=== PATIENT | female | born 1975 | race Caucasian/White ===

== ENCOUNTER 2022-03-24 13:37 | Observation (INO) | payer OTHER ==
[~2022-03-24] VITALS: Ht 165.1 cm; Wt 119.5 kg
--- NOTE | ~2022-03-24 | OR ---
[facility] [address], [place] [address] Draft DATE OF OPERATION: 03/24/2022 SURGEON: Kaylen Greco MD PREOPERATIVE DIAGNOSIS: Right great labia majora abscess. POSTOPERATIVE DIAGNOSIS: Right great labia majora abscess. PROCEDURE: 1. Incision and drainage and debridement of right labial abscess. 2. Placement of two yellow vessel loop drain. ANESTHESIA: Saddle block with IV sedation, Raul Cervantes CRNA INDICATIONS: This 47-year-old morbidly obese white woman has diabetes mellitus which is poorly controlled. She was noted to have soreness and increasing pain in the right labia majora over the preceding week. She was seen by ARY Griffiths, today confirming high probability of abscess. She seen in the office and admitted directly to the hospital for further evaluation and care to include drainage. Her preoperative blood sugar was 215. She understands the risks of bleeding, infection, need for other indicated procedures other than drainage and debridement and wished to proceed. FINDINGS: Copious purulent fluid was noted from the right labia majora. It extended cephalad to the mons pubis and inferiorly to the posterior fourchette. It did not represent an anal rectal problem. Complete drainage has been accomplished. Two vessel loops were used for ongoing drainage and postop care. DESCRIPTION OF PROCEDURE: The patient was brought to the operating room after undergoing saddle block in the preop anesthetic area. She was placed in the supine position, given intravenous sedation. Legs were placed in stirrups with all due care including padding of pressure points. The perineum was prepared with a Betadine based solution. The area of fluctuance in the mid right labia majora was identified and incised with a 15 blade, plan for egress of copious amount of purulent material. This was Gram stained and cultured. Hemostat was used to interrogate the space inferiorly and extending more posteriorly than expected PATIENT NAME: OLIVIER MCGOWAN OPERATIVE REPORT DATE OF : 71 REPORT #: [id number] PHYSICIAN: KAYLEN GRECO MD PCP: CELE VASQUEZ REPORT IS CONFIDENTIAL AND NOT TO BE RELEASED WITHOUT AUTHORIZATION [facility] [address], [place] [address] Draft and superiorly as well. Some discomfort was noted in the superior probing related to the level of the block no doubt. Once the purulent material was freed, suction irrigation was undertaken after placement of two yellow vessel loops through the incision sites. Three incision sites were noted were required. Once irrigation fluid was clear, PAC in the superior cavity was undertaken. Subsequently the inferior cavity with some iodoform half-inch gauze. A peripad was placed. She was ultimately transferred to the recovery room in good condition. BLOOD LOSS: 20 mL or less. Sponge, needle, and instrument counts reported as correct x3. MD ALDA Chan/SEAN /[id number] cc: ARY Miller Copies: CELE VASQUEZ ~ PATIENT NAME: OLIVIER MCGOWAN SAMAN OPERATIVE REPORT DATE OF : 71 REPORT #: [id number] PHYSICIAN: KAYLEN GRECO MD PCP: CELE VASQUEZ REPORT IS CONFIDENTIAL AND NOT TO BE RELEASED WITHOUT AUTHORIZATION
--- NOTE | ~2022-03-24 | HP ---
[facility] [address], [place] [address] Draft ADMISSION DATE: 03/24/2022 REASON FOR ADMISSION: Right labial abscess, poorly-controlled diabetes mellitus. HISTORY: This 47-year-old obese woman (261 pounds), presented after a week of increasing pain in the right labial area to [facility] Calle, her primary provider. She is recognized as having a labial abscess on the right side. She was seen in my office by me at approximately 01:00 p.m. confirming the findings of erythema and tenderness and soft tissue mass consistent with right labial abscess, which is possibly extensive. The patient has underlying diabetes mellitus, for which she takes metformin. She does not have good blood sugar control generally speaking. She admits that she has not checked her own blood sugar in quite some time. She has had no spontaneous drainage of the area in question, which she thinks may have been a fever, though her temperature currently is 97.0. She has had no chills. PAST MEDICAL HISTORY: Includes left breast lump excision in 1998 for benign disease. She has also had knee surgery in 2017. She does not smoke. Drinks alcohol rarely. She is considered to have allergy to latex. She has not had periods in quite some time. She is considered postmenopausal. The patient is and has four children, the youngest which is 10 years old. She lives in [place]. Her ( ) works for [employer]. REVIEW OF SYSTEMS: She denies any chest pain or shortness of breath. She last ate breakfast (hash browns) at approximately eight this morning. She denies any hematemesis or hemoptysis. She has had no chills. PHYSICAL EXAMINATION: GENERAL: A morbidly obese white woman, who does not look systemically toxic at this time. VITAL SIGNS: Temperature is 97.0, pulse is 84, blood pressure 97/77. Weight is 261 pounds. NECK: Shows no thyromegaly or cervical adenopathy. Mucous membranes reasonably moist. CHEST: Clear, without wheeze or rhonchi. HEART: Regular without murmur. PATIENT NAME: OLIVIER MCGOWAN HISTORY AND PHYSICAL DATE OF : 71 REPORT #: [id number] PHYSICIAN: KAYLEN GRECO MD PCP: CELE CALLE REPORT IS CONFIDENTIAL AND NOT TO BE RELEASED WITHOUT AUTHORIZATION [facility] [address], [place] [address] Draft ABDOMEN: Obese and soft. : Examination of the perineum shows an abscess in the right mid labial area. Erythema is noted in the fluctuant mass. There is no evidence of necessitation. She has no evidence of cellulitic change or crepitus. EXTREMITIES: Show no clubbing, cyanosis, or edema. MEDICATIONS: Include: 1. Metformin 500 mg two tablets p.o. daily. 2. Citalopram 20 mg p.o. daily. 3. Lovastatin 20 mg p.o. daily. 4. q.8 hours as needed. 5. Fluconazole 150 mg tablet as needed. 6. Clotrimazole cream as needed. ASSESSMENT: The patient has right labial abscess, for which drainage is needed. Consideration was made for drainage in the office and given the extent of the possibility of this abscess, its length of time in development (greater than a week), her underlying diabetes, and morbid obesity, she will likely be better served and bladder drained in an operative setting rather than the office setting. I discussed the risks of bleeding, infection, and so forth with her. She was directly admitted to the hospital to have initiation of antibiotics, IV fluids, lab studies and so. The operative management will probably include incision with drainage cultures, a counter incision in the yellow vessel loop drain. MD ALDA Chan/KELSIL /[id number] cc: ARY Miller PATIENT NAME: OLIVIER MCGOWAN HISTORY AND PHYSICAL DATE OF : 71 REPORT #: [id number] PHYSICIAN: KAYLEN GRECO MD PCP: CELE CALLE REPORT IS CONFIDENTIAL AND NOT TO BE RELEASED WITHOUT AUTHORIZATION [facility] [address] [place], [place] [address], [place] [address] Draft Copies: CELE CALLE ~ PATIENT NAME: OLIVIER MCGOWAN SAMAN HISTORY AND PHYSICAL DATE OF : 71 REPORT #: [id number] PHYSICIAN: KAYLEN GRECO MD PCP: CELE CALLE REPORT IS CONFIDENTIAL AND NOT TO BE RELEASED WITHOUT AUTHORIZATION
[~2022-03-24 13:37] MED LIST: CALCIUM 600 +1 EAC1 PO; CRUTCH1 EACH MISC; METFORMIN HCL500 MG PO; MOBIC7.5 MG PO; NAPROXEN500 MG PO; NORCO 10-325 T1 EACH PO; PROBIOTIC1 EAC1 PO; VITAMIN D5000 UNIT PO
--- NOTE | 2022-03-24 13:55 | NUR ---
Pt arrives to med surg unit, ambulatory. Hx and assessment complete. IV started, labs drawn, IVF infusing. Written orders from Dr Copeland verified with second RN and pharmacy and entered.
[2022-03-24] MEDS ORDERED: LOVASTATIN20 MG PO (14:01)
[2022-03-24] MEDS ORDERED: LEXAPRO20 MG PO (14:01)
[2022-03-24] MEDS ORDERED: FLUCONAZOLE150 MG PO (14:02)
[2022-03-24] MEDS ORDERED: VALACYCLOVIR1000 MG PO (14:02)
[2022-03-24] MEDS ORDERED: ALEVAZOL56.7 GM TOP (14:03)
--- NOTE | 2022-03-24 14:55 | NUR ---
Pt reports pain 7/10 to R labial area, IV toradol administered. Pt resting in bed. Denies questions or needs at this time.
--- NOTE | 2022-03-24 15:10 | NUR ---
IV ABX infusing. Pt updated on POC, agreeable. Pt denies pain or needs at this time.
--- NOTE | 2022-03-24 15:50 | NUR ---
IV Ancef infusing per order. Eli SCREEN HANDLER assists with pre op wipe down and jewelry removal. Pt prepared for OR. No needs at this time, pt denies further need for PRN pain medication.
--- NOTE | 2022-03-24 17:23 | NUR ---
Pt medicated with 2mg morphine for 8/10 pain. Pt prepped for OR and declines other needs. Call light in reach.
--- NOTE | 2022-03-24 19:03 | NUR ---
03/24/221902 Maura Gonzales 185: PT ARRIVES TO PACU WITH EYES CLOSED, RESP EVEN AND UNLABORED. PT SPONTANEOUSLY OPENS EYES AND STATES PAIN 9-10 WHEN ASKED. PT DENIES NAUSEA AND IS ABLE TO MOVE BLE. LARA GIBSON AT BEDSIDE. 1899: IV PAIN MEDICATION ADMINISTERED BY VULCANIZER OPERATOR.
--- NOTE | 2022-03-24 19:10 | NUR ---
REPORT FROM NADEEM AHUMADA, PT IN PACU -
--- NOTE | 2022-03-24 19:31 | NUR ---
PT TO ROOM 107 POST OP VIA BED, REPORT FROM RN, IV LR AT 125 LEFT ARM. PT DRSG TO LABIA SMALL AMT OF BLOOD NOTED ON DINAH PAD. PT HAS LOOP DRAIN AND LOWER INSC. WITH PACKING OF SMALL WICK. PT HOWEVER AMB TO BATHROOM VOID 300 ML OF URINE AND WICK FELL OUT. PT BACK TO BED STEADY ON FEET. VITALS WNL - ORIENTED PT AND TO ROOM AND RN, WHITE BOARD UPDATED. BS CHECKED 168. CALL LIGHT IN REACH AND PLAN OF CARE DISCUSSED.
--- NOTE | 2022-03-24 21:32 | NUR ---
WAKES SLIGHTLY FOR VS, DENIES NEEDS. IV INFUSING PER ORDER.
--- NOTE | 2022-03-24 22:30 | NUR ---
PT WAS PROVIDED A LATE NIGHT MEAL BOX, TOLLERATED WELL, NO NAUSEA/VOMITING. DENIES NEEDS
--- NOTE | 2022-03-25 01:46 | NUR ---
pt amb to br to void qs, new amy pad given for sm amt of red drainage from wound. new chux pad on bed, iv fusing lr at 125, pt rates pain with movement 02/16 - iv toradol given. pt in bed, call light in reach.
--- NOTE | 2022-03-25 07:11 | NUR ---
this rn verified with pharmacy noemí that correct dose of ancef was given last night, scanned correctly and loaded in refridge for this pt. no 3 gm ancef found for this 6 am dose - noemí is finding one and sending down now to give at 7 am. pt iv derek is fusing now.
--- NOTE | 2022-03-25 07:21 | NUR ---
DR BACA HERE WITH PT - PLAN FOR DC HOME, NO RESTRICTIONS AMB TOLLERATED.
--- NOTE | 2022-03-25 07:30 | NUR ---
THIS RN DISCUSSED PO PAIN MEDS WITH DR GRECO AND UPDATED - NEW ORDER FOR SITZ BATH AND PLAN TO GO HOME TODAY AFTER EDUCATION ON TASK. REPORT TO ARI AHUMADA.
--- NOTE | 2022-03-25 08:10 | NUR ---
Report received, care resumed. Pt sitting up in bed awake and visiting with family. IV LR infusing at 125 ml/hr. Pt asking when pain meds are due, pain at 4/10, rising from earlier this a.m. Plan to d/c to home after PO meds, sitz bath. Dr. Pascal already rounded, awaiting d/c orders.
--- NOTE | 2022-03-25 09:39 | NUR ---
ASSESSMENT DONE, WARM WATER SITZ BATH PERFORMED AND EDUCATION/SUPPLIES PROVIDED FOR AT HOME. PT EXPRESSED UDNERTSTANDING, STATES THAT IT FEELS GOOD. INCISIONS ON RIGHT LABIA NOTED TO BE DRAINING SMALL AMOUNT OF RED SEROSANGUINOUS FLUID. [address], WICKING IN LOWER DRAIN ONLY. PAIN 3/10 IN RIGHT LABIA, ABD TENDER IN RLQ. O2 95% ON RA, IV LR INFUSING AT 125 ML/HR. IV PATENT BUT POSITIONAL. NO FURTHER NEEDS AT THIS TIME, CALL LIGHT IN REACH.
[2022-03-25] MEDS ORDERED: METRONIDAZ500 MG/100 IV (11:19)
[2022-03-25] MEDS ORDERED: OXYCODON-ACETA1 EAC2 PO (11:19)
[2022-03-25] MEDS ORDERED: TYLENOL EXTRA500 MG PO (11:20)
[2022-03-25] MEDS ORDERED: MOTRIN IB200 MG PO (11:20)
[2022-03-25] MEDS ORDERED: AUGMENTIN 500-1 EACH PO (11:24)
[2022-03-25] MEDS ORDERED: METRONIDAZOLE500 MG PO (11:42)
--- NOTE | 2022-03-25 11:55 | NUR ---
MED REC COMPLETE
--- NOTE | 2022-03-25 12:11 | NUR ---
PT DISCHARGED TO HOME. VERBAL AND WRITTEN EDUCATION PROVIDED, PT EXPRESSED UNDERSTANDING. VSS, PAIN 3/10 IN LABIA. po PAIN MEDS GIVEN PRIOR TO D/C. FLU SHOT ALSO PROVIDED, PT TOLERATED WELL. PT LEFT FLOOR WITH DAUGHTER AND EVENT SERVICES MANAGER VIA WHEELCHAIR WITH ALL PERSONAL BELONINGS, SITZ BATH SUPPLIES. WAITING AT CAR.
== END 2022-03-25 12:10 | disposition home or self-care (01) ==
LOC: MS 13:37
PROVIDERS: ADMIT Surgery; ATTEND Surgery
PROC: 0U9M0ZZ Drainage of Vulva, Open Approach (ICD-10-PCS; principal; 2022-03-24 18:00)
DX: N76.4 Abscess of vulva (principal); E66.01 Morbid (severe) obesity due to excess calories; E11.65 Type 2 diabetes mellitus with hyperglycemia; Z91.040 Latex allergy status; Z79.84 Long term (current) use of oral hypoglycemic drugs
CPT/HCPCS: 36415; 80048; 80053; 85025; J0690; J1815; J1885; J2250; J2270; J2704; J3010; J7121; U0003

== ENCOUNTER 2023-05-12 08:33 | Emergency (ER) | payer OTHER ==
[~2023-05-12] VITALS: Ht 162.6 cm; Wt 122.2 kg
[~2023-05-12 08:33] MED LIST changes: +ALEVAZOL56.7 GM TOP; +AUGMENTIN 500-1 EACH PO; +FLUCONAZOLE150 MG PO; +LEXAPRO20 MG PO; +LOVASTATIN20 MG PO; +METRONIDAZ500 MG/100 IV; +METRONIDAZOLE500 MG PO; +MOTRIN IB200 MG PO; +OXYCODON-ACETA1 EAC2 PO; +TYLENOL EXTRA500 MG PO; +VALACYCLOVIR1000 MG PO
[2023-05-12] MEDS ORDERED: ONDANSETRON ODT8 MG (08:49)
[2023-05-12] MEDS ORDERED: GLIPIZIDE ER10 MG (08:49)
[2023-05-12 13:09] VITALS: BP 145/87
== END 2023-05-12 13:09 | disposition home or self-care (01) ==
LOC: ED 08:33
DX: S93.602A Unspecified sprain of left foot, initial encounter (principal); X58.XXXA Exposure to other specified factors, initial encounter; R73.03 Prediabetes; Z91.040 Latex allergy status; Z79.899 Other long term (current) drug therapy; Z79.84 Long term (current) use of oral hypoglycemic drugs
CPT/HCPCS: 73630; 99283-25

== ENCOUNTER 2023-12-13 11:33 | Day surgery (SDC) | payer OTHER ==
[~2023-12-13] VITALS: Ht 162.6 cm; Wt 118.0 kg
[~2023-12-13 11:33] MED LIST changes: +GLIPIZIDE ER10 MG; +IBLOOD GLUCOSE TEST STRIP 1 EA TEST VI PRN; +LACTATED RINGER'S 1,000 ML IV SCH; +LIDOCAINE HCL 1% 5 ML SDV INJ ONE; +LIDOCAINE HCL 4% 50 ML BTL TOP SCH; +MIDAZOLAM HCL 5 MG/5 ML VIAL IV PRN; +ONDANSETRON ODT8 MG; +fentaNYL citrate 100 MCG/2 ML VIAL IV PRN
[2023-12-13 11:55] VITALS: BP 122/79
--- NOTE | 2023-12-13 15:14 | NUR ---
LE 1400-PT UPDATED ON SURGICAL WAIT TIME. PT VERBALIZED UNDERSTANDING. NO OTHER NEEDS AT THIS TIME. CALL LIGHT WITHIN REACH.
--- NOTE | 2023-12-13 15:19 | NUR ---
LE 1500-PT UP TO RESTROOM. LE 1504-PT BACK TO ROOM 9. CALL LIGHT WITHIN REACH.
[2023-12-13] MEDS ORDERED: fentaNYL citrate 100 MCG/2 ML VIAL ONE (15:50)
[2023-12-13] MEDS ORDERED: MIDAZOLAM HCL 5 MG/5 ML VIAL ONE (15:50)
[2023-12-13 17:48] VITALS: BP 114/74
--- NOTE | 2023-12-13 17:58 | NUR ---
12/13/23 1758 Haley Gan 1657 PT ARRIVED TO PACU ON RA, PT AWAKES EASILY AND DENIES CONCERNS. 1702 3L NC PLACED DUE TO O2 SAT 90%, PT ASLEEP. O2 INCREASED TO MID 90S. 1706 MD AT BEDSIDE TALKING TO PT. 1710 O2 REMOVED, PT ROLLED TO BACK AND ENCOURAGED TO PASS GAS. PT DENIES CONCERNS. 1725 PT SIPPING WATER WITH NO CONCERNS AND PT DRESSED HERSELF. CALLED FOR CAR. 1740 PT DC WITH PAPERWORK AND INSTRUCTIONS GIVEN. GALLBLADDER INFORMATION GIVEN AND PT VERBALIZED UNDERSTANDING OF SURGERY PLAN.
--- NOTE | 2023-12-14 13:31 | OR ---
[facility] [address] [place], [place] [address] Signed DATE OF OPERATION: 12/13/2023 SURGEON: Kaylen Greco MD PREOPERATIVE DIAGNOSES: 1. Upper abdominal symptoms highly probable of biliary colic. 2. Colon screening. POSTOPERATIVE DIAGNOSES: 1. Small hiatal hernia without other abnormality. 2. Minimal chronic distal esophagitis. 3. Normal colon. PROCEDURES: 1. Esophagogastroduodenoscopy with biopsy. 2. Total colonoscopy to cecum. ANESTHESIA: Intravenous sedation; fentanyl 150 mcg, Versed 8 mg. INDICATION: This 48-year-old white woman is a patient of ARY Miller. She has had symptoms highly suggestive of biliary colic for the past two years. Evaluation in the past showed a gallbladder ultrasound which was normal. She underwent a CCK-HIDA test on October 27, 2023 showing ejection fraction of 72% but marked reproduction of symptoms of biliary colic. I have advocated cholecystectomy to be considered. She is still somewhat reluctant to that. She does have postprandial pain in the right subcostal area and the posterior thoracic area and does have family history of cholecystectomy in grandmother and sister and mother. She is due for screening colonoscopy based on her age, though she has no symptoms in that regard. Colonoscopy is planned for that. Since her HIDA scan was somewhat ambiguous as regards to ejection fraction, I have offered upper endoscopy concurrent to her colonoscopy to assure there is no peptic disease of the stomach or esophagus. She agrees to that as well. The risk of bleeding, infection, and perforation related to upper endoscopy and colonoscopy have been reviewed with her. She understands and wished to proceed. FINDINGS: Upper endoscopy did show a poor flap valve, but no sign of large hiatal hernia. The Electronically Signed By: AKYLEN GRECO MD 12/14/23 1331 PATIENT NAME: OLIVIER MCGOWAN OPERATIVE REPORT DATE OF : 71 REPORT #: [id number] PHYSICIAN: KAYLEN GRECO MD PCP: CELE VASQUEZ REPORT IS CONFIDENTIAL AND NOT TO BE RELEASED WITHOUT AUTHORIZATION [facility] [address] [place], [place] [address] Signed esophagus had mild chronic distal esophagitis. No sign of Garcia's epithelium. The stomach was normal. The patient had a fair amount of congestion secretions somewhat intolerant as regards to O2 saturations with upper endoscopy. The procedure did not include duodenal evaluation per se though the pylorus itself appeared normal. Additionally, CLOtest was not performed. On colonoscopy, the prep was quite good. Complete colonoscopy was undertaken of the cecum which was normal. DESCRIPTION OF PROCEDURE: The patient was brought to the endoscopy suite and placed in the lateral decubitus position, given topical lidocaine hypopharyngeal anesthesia. She is given intravenous sedation to the point of slurred speech and nystagmus. Full cardiopulmonary monitoring was maintained. The Olympus video upper endoscope was passed in the hypopharynx. The vocal cords were briefly evaluated and found to be normal. Upon passage of the scope into the esophagus, the patient did have a fair amount of secretions requiring suction and so forth. The scope was passed in the stomach which was insufflated with air. Rugal folds were normal. Antrum was normal. Pylorus was normal. She was having some issues with secretions and therefore additional sedation was withheld, but suctioning undertaken. As the stomach appeared normal and the pylorus was somewhat in spasm further passage through the area was deemed unwise. Retroflexed view was undertaken showing a marginal flap valve. The scope was withdrawn to the distal esophagus. By this point, her secretions and so forth were better control. Biopsies were obtained of the distal esophagus. It appeared possibly mildly inflamed but certainly not severe and with no evidence of Garcia's epithelium. Further withdrawal of scope was undertaken with no other findings of concern. She did promptly respond to withdrawal of the scope. She was given additional sedation ultimately and a digital rectal examination performed which was normal. Olympus video colonoscope was passed in the rectum and manipulated throughout the colon ultimately intubating the cecum itself. The ileocecal valve and appendiceal orifice were normal. The scope was then withdrawn and examination throughout showed no sign of abnormality, specifically no [id number], diverticular formation, colitis, or cancer. Retroflexed view was normal as well. The scope was removed and the patient was taken to the recovery room in good condition. CONCLUDING DIAGNOSES: 1. No obvious lesions on upper endoscopy, though duodenum not fully evaluated. Minimal hiatal hernia or poor flap valve with no sign of active esophagitis, ulceration or Garcia's epithelium. 2. Normal colon. Electronically Signed By: KAYLEN GRECO MD 12/14/23 1331 PATIENT NAME: OLIVIER MCGOWAN [facility] OPERATIVE REPORT DATE OF : 71 REPORT #: [id number] PHYSICIAN: KAYLEN GRECO MD PCP: CELE VASQUEZ REPORT IS CONFIDENTIAL AND NOT TO BE RELEASED WITHOUT AUTHORIZATION [address] [address] Signed PLAN: Repeat colonoscopy would be recommended in 10 years given her risk profile, certainly sooner if needed. She can call the office to make arrangements for cholecystectomy in the future as she permits. MD ALDA Chan/MODL /[id number] cc: ARY Miller Copies: CELE VASQUEZ ~ Electronically Signed By: KAYLEN GRECO MD 12/14/23 1331 PATIENT NAME: OLIVIER MCGOWAN SAMAN OPERATIVE REPORT DATE OF : 71 REPORT #: [id number] PHYSICIAN: KAYLEN GRECO MD PCP: CELE VASQUEZ REPORT IS CONFIDENTIAL AND NOT TO BE RELEASED WITHOUT AUTHORIZATION
== END 2023-12-13 17:40 | disposition home or self-care (01) ==
LOC: DS 11:33 → OPS 11:33 → DS 13:00 → OPS 13:00
PROVIDERS: ATTEND Surgery
PROC: 0DB38ZX Excision of Lower Esophagus, Via Natural or Artificial Opening Endoscopic, Diagnostic (ICD-10-PCS; principal; 2023-12-13 13:00)
PROC: 0DJD8ZZ Inspection of Lower Intestinal Tract, Via Natural or Artificial Opening Endoscopic (ICD-10-PCS; 2023-12-13 13:00)
DX: Z12.11 Encounter for screening for malignant neoplasm of colon (principal); K44.9 Diaphragmatic hernia without obstruction or gangrene; K20.90 Esophagitis, unspecified without bleeding; E66.01 Morbid (severe) obesity due to excess calories; E11.65 Type 2 diabetes mellitus with hyperglycemia; Z68.41 Body mass index [BMI] 40.0-44.9, adult; Z79.84 Long term (current) use of oral hypoglycemic drugs; Z79.899 Other long term (current) drug therapy; Z91.040 Latex allergy status
CPT/HCPCS: 84703; 99153; G0500; J2250; J3010; J7121

== ENCOUNTER 2023-12-27 05:57 | Day surgery (SDC) | payer OTHER ==
[2023-12-22 13:09] VITALS: BP 125/85
[~2023-12-27] VITALS: Ht 162.6 cm; Wt 120.5 kg
[~2023-12-27 05:57] MED LIST changes: -IBLOOD GLUCOSE TEST STRIP 1 EA TEST VI PRN; -LIDOCAINE HCL 1% 5 ML SDV INJ ONE; -LIDOCAINE HCL 4% 50 ML BTL TOP SCH; -MIDAZOLAM HCL 5 MG/5 ML VIAL IV PRN; -fentaNYL citrate 100 MCG/2 ML VIAL IV PRN
[2023-12-27 06:22] VITALS: BP 151/80
[2023-12-27] MEDS ORDERED: iopamidoL 30 ML VIAL ONE (06:48)
[2023-12-27] MEDS ORDERED: LIDOCAINE HCL 1% 5 ML SDV INJ ONE (07:00)
[2023-12-27] MEDS ORDERED: HEParin SOD (PORCINE) 5,000 UNIT/0.5 ML SYR SUB-Q SCH (07:00)
[2023-12-27] MEDS ORDERED: IBLOOD GLUCOSE TEST STRIP 1 EA TEST VI PRN ×2 (07:00→09:15)
[2023-12-27] MEDS ORDERED: CEFAZOLIN SODIUM 2 GM/20 ML SYR IV SCH (07:00)
[2023-12-27] MEDS ORDERED: dexmedeTOMIDine HCl 200 MCG/2 ML VIAL ONE (07:24)
[2023-12-27] MEDS ORDERED: MAGNESIUM SULFATE 1 GM/2 ML VIAL ONE (07:24)
[2023-12-27] MEDS ORDERED: ROCURONIUM BROMIDE 50 MG/5 ML SYR ONE (07:24)
[2023-12-27] MEDS ORDERED: fentaNYL citrate 100 MCG/2 ML VIAL ONE (07:24)
[2023-12-27] MEDS ORDERED: SUCCINYLCHOLINE IN 0.9% NACL 200 MG/10 ML SYRINGE ONE (07:24)
[2023-12-27] MEDS ORDERED: LIDOCAINE HCL 2% 5 ML SDV ONE (07:24)
[2023-12-27] MEDS ORDERED: SUGAMMADEX SODIUM 200 MG/2 ML ML ONE (07:24)
[2023-12-27] MEDS ORDERED: KETOROLAC TROMETHAMINE 30 MG/ML VIAL ONE (07:24)
[2023-12-27] MEDS ORDERED: propofoL 200 MG/20 ML VIAL ONE (07:24)
[2023-12-27] MEDS ORDERED: KETAMINE in NS 50 MG/5 ML SYR ONE (07:24)
[2023-12-27] MEDS ORDERED: SCOPOLAMINE 1 MG/3 DAYS PATCH 1 EACH TDSY ONE (07:24)
[2023-12-27] MEDS ORDERED: ACETAMINOPHEN 1,000 MG/100 ML VIAL ONE (07:24)
[2023-12-27] MEDS ORDERED: MIDAZOLAM HCL 2 MG/2 ML VIAL ONE (07:26)
[2023-12-27] MEDS ORDERED: LACTATED RINGER'S 1,000 ML IV ONE (08:37)
[2023-12-27] MEDS ORDERED: ACETAMINOPHEN500 MG PO (09:08)
[2023-12-27] MEDS ORDERED: OXYCODON-ACETA1 EAC2 PO (09:08)
[2023-12-27] MEDS ORDERED: IBUPROFEN600 MG PO (09:08)
--- NOTE | 2023-12-27 09:11 | NUR ---
12/27/23 0911 Jaye Flores 0856- PT ARRIVES TO PACU NONAROUSABLE TO STIMULI WITH AN OPA IN PLACE. RESP EVEN AND UNLABORED. OXYGEN SAT MID TO HIGH 90'S ON 8L VIA MASK. 0858- PT STARTING TO AROUSE TO STIMULI. INSTRUCTED PT TO OPEN HER MOUTH TO REMOVE THE OPA. PT IS UNABLE TO FOLLOW COMMANDS AT THIS TIME. OXYGEN MASK REPLACED. OPA LEFT IN PLACE. 0859- PT REACHES UP AND PULLS OUT HER OPA. OXYGEN MASK REPLACED AT 8L. RESP EVEN AND UNLABORED. 0911- PT WILL AROUSE AND OPEN HER EYES. PT DOES NOT FOLLOW COMMANDS OR ANSWER QUESTIONS AT THIS TIME. PT FALLS BACK TO SLEEP EASILY.
[2023-12-27] MEDS ORDERED: IBUPROFEN 600 MG TAB PO PRN (09:15)
[2023-12-27] MEDS ORDERED: NALOXONE HCL 0.4 MG SYR IV PRN ×2 (09:15)
[2023-12-27] MEDS ORDERED: PROCHLORPERAZINE EDISYLATE 10 MG/2 ML VIAL IV PRN (09:15)
[2023-12-27] MEDS ORDERED: HYDROmorphone HCL 1 MG/ML SYR IV PRN (09:15)
[2023-12-27] MEDS ORDERED: LACTATED RINGER'S 1,000 ML IV SCH (09:15)
[2023-12-27] MEDS ORDERED: METOCLOPRAMIDE HCL 10 MG/2 ML SDV IV PRN (09:15)
[2023-12-27] MEDS ORDERED: ondansetron HCL 4 MG/2 ML VIAL IV PRN ×2 (09:15)
[2023-12-27] MEDS ORDERED: fentaNYL citrate 50 MCG/ML SDV IV PRN (09:15)
[2023-12-27] MEDS ORDERED: ACETAMINOPHEN 500 MG TAB PO PRN (09:15)
[2023-12-27] MEDS ORDERED: OXYCODONE/APAP 7.5/325 TAB PO PRN (09:15)
[2023-12-27] MEDS ORDERED: droPERidol 5 MG/2 ML VIAL IV PRN (09:15)
[2023-12-27] MEDS ORDERED: fentaNYL citrate 50 MCG/ML SDV ONE (09:26)
[2023-12-27 10:05] VITALS: BP 111/65
--- NOTE | 2023-12-27 10:15 | NUR ---
1005-PT BACK TO ROOM FROM PACU ON RA. RECEIVED REPORT FROM JUJU AHUMADA. PT IS DROWSY. RESP EVEN AND UNLABORED. RATES PAIN 7/10. STATES "LITTLE BIT OF NAUSEA" DECLINES NAUSEA MEDICATION AT THIS TIME. PT HAS PILLOW TO SPLINT WITH. FAMILY IN ROOM. NO OTHER NEEDS AT THIS TIME. CALL LIGHT WITHIN REACH. 1009-PAIN MEDICATION GIVEN PER EMAR.
--- NOTE | 2023-12-27 10:55 | NUR ---
1044-PT STATES PAIN IS STILL 12/06. 2ND PAIN MEDICATION GIVEN PER EMAR. PT USING PILLOW TO SPLINT WITH. NO OTHER NEEDS AT THIS TIME. FAMILY IN ROOM. CALL LIGHT WITHIN REACH.
[2023-12-27 11:20] VITALS: BP 121/77
--- NOTE | 2023-12-27 11:20 | NUR ---
LE 1120-PT LAYING IN BED WITH EYES CLOSED. AWAKES EASILY WITH VERBAL STIMULI. RATES PAIN 5/10. DENIES NAUSEA. PT HAS WATER AT BEDSIDE. FAMILY IN ROOM. NO OTHER NEEDS AT THIS TIME. CALL LIGHT WITHIN REACH.
[2023-12-27 12:24] VITALS: BP 1008/69
--- NOTE | 2023-12-27 12:28 | NUR ---
1220-PATIENT DENIES NAUSEA REPORTS "PAIN TOLERABLE AT 4" 02 SAT WAS 89-90% ON RA ENCOURAGED DEEP BREATHING AND O2 SAT INCREASED TO 99% ON RA RR EVEN. AND FAMILY AT BEDSIDE. CALL LIGHT WITHIN REACH.
[2023-12-27 13:20] VITALS: BP 105/56
--- NOTE | 2023-12-27 13:20 | NUR ---
LE 1320-PT LAYING IN BED WITH EYES CLOSED. OPENS EYES AND ANSWERES QUESTIONS WITH VERBAL SIMULI. RESP EVEN AND UNLABORED. VSS. RATES PAIN 2/10. DENIES NAUSEA. DRESSINGS WITH SMALL AMOUNT OF RED DRAINAGE. PT READY TO GO HOME. FAMILY WILL HELP PT GET DRESSED. LE 1327-PT AMUBLUATES TO RESTROOM. GAIT STEADY AND TOLERATED WELL. PT VOIDS. LE 1331-PT BACK TO ROOM AND SITTING AT BEDSIDE.
--- NOTE | 2023-12-27 13:40 | NUR ---
DISCHARGE INSTRUCTIONS DISCUSSED WITH PT AND PT'S . ALL QUESTIONS ANSWERED. PT REPORTS ABD PAIN A 2/10, DENIES ANY NAUSEA. PT STATES SHE FEELS READY TO GO HOME. PT ABLE TO AMBULATE TO THE WHEELCHAIR AND IS TAKEN TO THE FRONT OF THE HOSPITAL. PT INTO THE PASSENGER SIDE OF HER VEHICLE. PT THANKFUL FOR HER CARE.
--- NOTE | 2023-12-29 11:49 | OR ---
[facility] [address], [place] [address] Signed DATE OF OPERATION: 12/27/2023 SURGEON: Kaylen Greco MD PREOPERATIVE DIAGNOSES: 1. Chronic acalculous cholecystitis. 2. Morbid obesity, BMI of 44.1. POSTOPERATIVE DIAGNOSES: 1. Chronic acalculous cholecystitis. 2. Morbid obesity, BMI of 44.1. PROCEDURES: 1. Laparoscopic cholecystectomy with intraoperative cholangiogram. 2. Surgeon-directed fluoroscopy. ANESTHESIA: General endotracheal; Shane Dunn CRNA and local 10 mL of 0.25% Marcaine with epinephrine. INDICATION: This 48-year-old morbidly obese (BMI of 44.1) white woman is a patient of ARY Miller. She has had at least three years of rather typical biliary colic symptoms. She did undergo a gallbladder ultrasound which was normal and a CCK-HIDA test on October 27, 2023 showing ejection fraction of 72% with marked reproduction of her biliary colic type symptoms. Given her long-standing symptoms and her other classic symptoms of biliary colic, she is deemed to likely have acalculous cholecystitis. Notably, she has family members including mother, grandmother and sister who have all required cholecystectomy in the past. She is here to undergo cholecystectomy preferred by a laparoscopic approach. She understands the risk of bleeding, infection, bile duct injury, need for open procedure and other unforeseen complications. Understanding this, she wished to proceed. FINDINGS: She did have a fatty liver and the gallbladder was relatively small but was chronically inflamed. Intraoperative cholangiogram was normal. The gallbladder once excised showed cholesterolosis of mucosa. There was no sign of neoplasm. She had less of a fatty liver than I expected. There were no other findings of concern. DESCRIPTION OF PROCEDURE: Electronically Signed By: KAYLEN GRECO MD 12/29/23 1149 PATIENT NAME: OLIVIER MCGOWAN OPERATIVE REPORT DATE OF : 71 REPORT #: [id number] PHYSICIAN: KAYLEN GRECO MD PCP: CELE VASQUEZ REPORT IS CONFIDENTIAL AND NOT TO BE RELEASED WITHOUT AUTHORIZATION [facility] [address], [place] [address] Signed The patient was brought to the operating room and given a general endotracheal anesthetic. Preoperative antibiotic Ancef was given and sequential compression device stockings were used. Heparin was administered subcutaneously in the operating room prior to operation. The abdomen was prepared with chlorhexidine solution and draped sterilely. An infraumbilical incision was made and using an open Jeet cannula technique pneumoperitoneum was achieved to a level of 14 mmHg of carbon dioxide gas. Intra-abdominal inspection showed no sign of ascites or carcinomatosis. The gallbladder was obscured from view. Three additional trocars were placed in usual configuration in the subxiphoid, right midclavicular, and right anterior axillary line. The gallbladder was grasped and elevated cephalad retracting the gallbladder, which appeared chronically inflamed. The infundibulum was grasped and retracted laterally and using blunt and electrocautery dissection the triangle of Calot was dissected free. Ultimately, the cystic duct and cystic artery were identified. The cystic artery doubly clipped and a clip applied across the gallbladder cystic duct junction. A transverse choledochotomy was made in the cystic duct showing clear yellow bile. Using the [employer] type cholangiocatheter system, intraoperative cholangiography was undertaken showing free flow of contrast in the biliary tree with prompt emptying into the duodenum. There was no sign of filling defect or other abnormality. The catheter was removed and the cystic duct was triply clipped and divided. The gallbladder was then dissected free in a retrograde fashion using electrocautery. Gallbladder was extracted through the infraumbilical port site without problem, opened on the back table and found to have chronic inflammatory change. No sign of neoplasm and no stones. Reinspection of subhepatic space showed no sign of bile leak, bleeding or other problems. The trocars removed under direct visualization showing no sign of bleeding. The infraumbilical fascial incision was reapproximated with interrupted 0 Vicryl suture. 10 mL of 0.25% Marcaine with epinephrine was injected locally. Skin was then closed with interrupted 3-0 Vicryl. Steri-Strips were applied. The patient was ultimately extubated and transferred to recovery room in good condition having suffered no known complications. Sponge, needle, and instrument counts were reported as correct x3. Kaylen Greco MD JM/MODL /[id number] Electronically Signed By: KAYLEN GRECO MD 12/29/23 1149 PATIENT NAME: OLIVIER MCGOWAN OPERATIVE REPORT DATE OF : 71 REPORT #: [id number] PHYSICIAN: KAYLEN GRECO MD PCP: CELE VASQUEZ REPORT IS CONFIDENTIAL AND NOT TO BE RELEASED WITHOUT AUTHORIZATION [place] [id number] Signed cc: ARY Miller Copies: CELE VASQUEZ ~ Electronically Signed By: KAYLEN GRECO MD 12/29/23 1149 PATIENT NAME: OLIVIER MCGOWAN SAMAN OPERATIVE REPORT DATE OF : 71 REPORT #: [id number] PHYSICIAN: KAYLEN GRECO MD PCP: CELE VASQUEZ REPORT IS CONFIDENTIAL AND NOT TO BE RELEASED WITHOUT AUTHORIZATION
--- NOTE | 2023-12-30 18:11 | PATH ---
[facility] [address] [place], [place] [address] Signed SPECIMEN(S): A GALLBLADDER SPECIMEN SOURCE: A. GALLBLADDER CLINICAL HISTORY: Pre: Biliary colic, post: Lap ian. FINAL PATHOLOGIC DIAGNOSIS: Gallbladder, cholecystectomy: - Gallbladder with cholesterolosis. - No calculi identified within the gallbladder or specimen container. - Negative for chronic, acute, and granulomatous inflammation. - Negative for dysplasia and malignancy. COMMENT: Biliary dyskinesia can sometimes present with findings such as this. Correlation with the patient's clinical history will be necessary. SDL MICROSCOPIC EXAMINATION: Histologic sections of all submitted blocks are examined by light microscopy. These findings, together with the gross examination, support the pathologic diagnosis. GROSS DESCRIPTION: The specimen, labeled and designated "Kam Mcgowan, gallbladder," is received in formalin and consists of Specimen: Previously opened gallbladder. Dimensions: 6.5 x 4.2 x 1.0 cm. Serosa: Yellow-green and smooth. Cystic Duct: Inked, probed patent. Calculi: Not grossly identified. Mucosa: Green and velvety with yellow flecking. Wall thickness: 0.3 cm. Lymph node: No pericystic lymph nodes are grossly identified. Additional: None. Field Account Director sections are submitted in (A1). FB (under the direct supervision of a pathologist) The Gross Description was prepared using a voice recognition system. The report was reviewed for accuracy; however, sound-alike word errors, addition and/or PATIENT NAME: OLIVIER MCGOWAN SAMAN PATHOLOGY DATE OF : 71 REPORT #: [id number] PHYSICIAN: JARRETT ARCHER PCP: CELE VASQUEZ REPORT IS CONFIDENTIAL AND NOT TO BE RELEASED WITHOUT AUTHORIZATION [facility] [address] [facility] [place] [address] Signed deletions may occur. If there are any questions about this report, please contact Client Services. ADDITIONAL NOTES: Immunohistochemical and/or in situ hybridization studies if performed in this case included appropriate positive controls that reacted as expected. This test was developed and its performance characteristics determined by [facility]. It has not been cleared or approved by the U.S. Food and Drug Administration. The FDA has determined that such clearance or approval is not necessary. This test is used for clinical purposes. It should not be regarded as investigational or for research. [facility] is certified under the Clinical Laboratory Improvement Amendments of 1988 (CLIA) as qualified to perform high complexity clinical laboratory testing. PERFORMING LABORATORY: Technical component was performed by [facility], [address] [place] [id number] (CLIA# [id number]). Professional interpretation was performed by [facility], [address] [place] [id number] (CLIA#: [id number]). Diagnostician: Cristine Waite MD Pathologist Electronically Signed 12/30/2023 Copies: ~ PATIENT NAME: OLIVIER MCGOWAN PATHOLOGY DATE OF : 71 REPORT #: [id number] PHYSICIAN: JARRETT ARCHER PCP: CELE VASQUEZ REPORT IS CONFIDENTIAL AND NOT TO BE RELEASED WITHOUT AUTHORIZATION
== END 2023-12-27 13:40 | disposition home or self-care (01) ==
LOC: DS 05:57
PROVIDERS: ATTEND Surgery
PROC: 0FT44ZZ Resection of Gallbladder, Percutaneous Endoscopic Approach (ICD-10-PCS; principal; 2023-12-27 07:30)
DX: K81.1 Chronic cholecystitis (principal); E66.01 Morbid (severe) obesity due to excess calories; K76.0 Fatty (change of) liver, not elsewhere classified; E11.65 Type 2 diabetes mellitus with hyperglycemia; Z68.41 Body mass index [BMI] 40.0-44.9, adult; Z84.89 Family history of other specified conditions
CPT/HCPCS: 00790; 74300; J0131; J0330; J0690; J1644; J1885; J2001; J2250; J2704; J3010; J3475; J3490; J7121; Q9967